=== PATIENT | male | born 1940 | race Caucasian/White ===

== ENCOUNTER 2020-11-25 16:43 | Observation (INO) ==
[2020-11-25] MEDS ORDERED: MORPHINE SULFATE 2 MG/ML DISP.SYRIN IV ONE (17:03)
[2020-11-25] MEDS ORDERED: MORPHINE SULFATE 2 MG/ML DISP.SYRIN ONE (17:04)
--- NOTE | 2020-11-25 17:10 | ERNOTE ---
Trauma/Assault HPI - Narrative Date of Service: 11/25/20 - General Stated Complaint: Fall; Rib/Side Pain Time Seen by Provider: 11/25/20 16:47 Source: patient Exam Limitations: no limitations - Immun/Allergies/Home Medications Immunizations: IMMUNIZATION HX Immunizations Up to Date Yes History of Influenza Vaccine Yes Hx Pneumococcal Vaccination Yes Allergies/Adverse Reactions: Allergies No Known Allergies Allergy (Unverified 11/25/20 17:00) Home Medications: HOME MEDICATIONS Aspirin [Aspirin Chewable] 81 mg PO DAILY 11/25/20 [Last Taken Unknown] Cetirizine HCl [Zyrtec] 10 mg PO DAILY 11/25/20 [Last Taken Unknown] Gabapentin 300 mg PO TID 11/25/20 [Last Taken Unknown] HYDROcodone/ACETAMINOPHEN [[place] 5-325] 1 tab PO QID PRN 11/25/20 [Last Taken Unknown] Meloxicam [Mobic] 15 mg PO DAILY 11/25/20 [Last Taken Unknown] Pantoprazole Sodium 40 mg PO DAILY 11/25/20 [Last Taken Unknown] Tamsulosin HCl [Flomax] 0.4 mg PO BID 11/25/20 [Last Taken Unknown] - History of Present Illness Narrative: 80-year-old male presents status post mechanical fall that happened approximately 3 hours prior to arrival. Patient was brought by private vehicle. Patient notes his pain is currently 10/10 he notes the pain appears to be worse with movement, lifting of his left arm, any significant stretching or reaching activities. He does note he has mild improvements at rest however he continues to have significant baseline pain. Patient denies any significant shortness of breath at this time, denies any loss of consciousness no significant head trauma. He denies any episodes of emesis. Patient notes he is not taking a blood thinner outside of an 81 mg aspirin daily. Patient notes he had significant difficulty getting comfortable, he denies any significant radiating symptoms. He denies any other significant modifying factors. He did not take any medications prior to arrival. Review of Systems - Review of Systems Constitutional: Absent: fever, weakness EYE: Absent: blurred vision, double vision ENT: Absent: nose congestion, sore throat Respiratory: Absent: shortness of breath, cough Cardiology: Present: See HPI. Absent: chest pain, syncope Gastrointestinal/Abdominal: Absent: nausea, vomiting, diarrhea, constipation, abdominal pain Genitourinary: Present: no symptoms reported Musculoskeletal: Present: back pain. Absent: joint pain Skin: Absent: rash, lesions Neurological: Absent: headache, dizziness/light-headedness, weakness, numbness, tingling Endocrine: Present: no symptoms reported Hematologic/Lymphatic: Present: no symptoms reported Psych: Present: no symptoms reported Medical History (Last Reviewed 11/25/20 @ 19:27 by ERIC Trujillo) Hx of sleep apnea Surgical History: Surgical History (Last Reviewed 11/25/20 @ 19:27 by ERIC Trujillo) Hx of appendectomy Hx of bariatric surgery Hx of shoulder replacement Family History: Family History (Last Reviewed 11/25/20 @ 19:27 by ERIC Trujillo) Other No pertinent family history in first degree relatives Social History: (Last Reviewed 11/25/20 @ 19:27 by ERIC Trujillo) Tobacco: Smoking Status: Former smoker Alcohol: alcohol intake: former Substance Use: substance use type: does not use Physical Exam - Physical Exam General Appearance: Present: wd/wn, alert, moderate distress Head Exam: Present: normal inspection, no evidence of injury. Absent: Lugo's Sign, raccoon eyes Eye Exam: Normal inspection: bilateral, PERRL: bilateral, EOMI: bilateral Ears, Nose, Throat: Present: normal ENT inspection, normal pharynx Neck: Present: normal inspection, nontender Respiratory: Present: no respiratory distress, normal breath sounds, no accessory muscle use, chest tenderness - left sided mid-throacic Cardiovascular/Chest: Present: regular rate, rhythm, no murmur Gastrointestinal/Abdominal: Present: normal bowel sounds, nontender, nondistended, soft Back Exam: Present: vertebral tenderness - thoracic region, decreased range of motion Extremity Exam: Present: normal inspection, non-tender, no edema Neurological Exam: Present: alert, oriented, normal mood/affect, no motor/sensory deficits Skin Exam: Present: normal color, warm/dry Detailed Trauma Exam Best Eye Response (Manju): (4) open spontaneously Best Verbal Response (Ethan): (5) oriented Best Motor Response (Ethan): (6) obeys commands Ethan Total: 15 - C-Spine cleared by: Neg history & exam Progress - Date and Time Seen: Date and Time: 11/25/20 17:08 80-year-old male presents today status post what appears to be a mechanical fall . Patient denies any significant cardiac history however he does have significant left-sided chest pain. Patient's vitals are stable at this time. Discussed ruling out any acute cardiac conditions as well as concern for significant bony traumas. Discussed with patient obtaining baseline lab as well as imaging for these possibilities of pathology. Patient expressed understanding will continue to monitor, did give patient a dose of pain medication IV to help improve his comfortability. We will continue to monitor and adjust treatment plan acutely. 11/25/20 19:[address] was negative for acute intracranial process, chest x-ray cardiomegaly, no other acute process identified. Patient's thoracic CT did reveal multiple adjacent rib fractures along the left side posteriorly. Based on this and patient's continued pain discussed the possibility of discharge versus admittance for observation. Patient is significantly limited in his ability to ambulate at this time due to pain control, note his vitals are stable however discussed risk of developing acute complication. Discussed possible education from respiratory with an incentive spirometer. Discussed risk of further complications and continued pain control. At this time elected to discussed the case with internal medicine physician. Dr. Burton will be the admitting physician for observation, pain control, continued care. Discussed the case in detail with him over the phone. Patient will be Covid swab prior to admittance into the hospital for appropriate placement. We will continue to monitor patient until he is transferred to the medical surgical unit. - Results and Orders Patient's Lab Results:: I have reviewed the patient's lab results. - Vital Signs Patient's Vital Signs:: I have reviewed the patient's vital signs. Vital Signs: Vital Signs 11/25/20 16:51 Temperature 36.6 C Pulse Rate 76 Respiratory Rate 20 Blood Pressure 138/85 O2 Sat by Pulse Oximetry 97 - X-Ray X-Ray #1 X-Ray: chest Interpretation: Reviewed by me X-ray Comments: HISTORY: Fall TECHNIQUE: 2 AP portable views. FINDINGS: Mild cardiomegaly. Central vascular prominence noted with some questionable Michelle B lines. If real this could imply some minor interstitial edema. This could all represent chronic interstitial change. No alveolar consolidations. No pleural effusion or pneumothorax Mild age-related changes seen in the aortic arch. IMPRESSION: Cardiomegaly without florid interstitial edema but questionable borderline fluid overload versus chronic interstitial change. Slight undulation of several left-sided ribs noted but without definite cortical step-off Electronically signed by Suyapa Childress MD. Suyapa Childress MD - CT/Ultrasound CT/Ultrasound Narrative: Noncontrast head CT on 11/25/2020 COMPARISON: None HISTORY: Fall TECHNIQUE: 5 mm axial images. Sagittal and coronal reformats. Individualized dose optimization technique was used for the performed procedure including automated exposure control, adjustment of the mA and/or kV according to patient size and/or the iterative reconstruction technique. FINDINGS: Ventricles mildly prominent a pattern suggesting central atrophy. No midline shift. Mild to moderate periventricular and deep white matter low-attenuation may representing combinations of transependymal resorption of CSF and age-related small vessel change. Other demyelinating processes could have similar appearance. No evidence for bleed, mass effect nor discrete mass lesions. The sella turcica and suprasellar cistern are unremarkable. No worrisome focal abnormality within midbrain, tiffanie, medulla or cerebellum. Cerebellar tonsils are low lying. Sulcal prominence consistent with cortical atrophy, mild to moderate in severity over the convexities and by the sylvian fissures. No discrete extra-axial fluid or soft tissue masses noted. Bone window settings fail to demonstrate acute calvarial abnormality. Paranasal sinuses demonstrate patchy ethmoid opacification and moderate mucoperiosteal thickening in the caudal left maxillary antrum. Mastoid air cells are unremarkable. No discrete orbital abnormality. Moderate calcification the cavernous portion the carotid arteries. IMPRESSION: No acute intracranial abnormality. Mild central and moderate cortical atrophy and suspected age-related deep white matter change. Other incidental findings described above COMPARISON: None HISTORY: Fall TECHNIQUE: 3 mm axial images. Sagittal and coronal reformats. Individualized dose optimization technique was used for the performed procedure including automated exposure control, adjustment of the mA and/or kV according to patient size and/or the iterative reconstruction technique. FINDINGS: Coronal imaging demonstrates mild scoliosis convex left lower thoracic region, rightward mid thoracic region. Midline sagittal images demonstrate slight straightening of dorsal kyphosis. Bones are diffusely osteoporotic. There is some Schmorl's deformities and minor endplate concavities suggestive of osteoporotic deformity. I do not see anterior wedge compression fractures. There are multiple posterior rib fractures on the left involving 3 and possibly 4 contiguous vertebra involving the sixth through potentially the ninth vertebra. There is some minimal pleural thickening and small pleural effusion adjacent to it. Incidental mode is also made of hilar or mediastinal calcifications consistent with previous granulomatous disease exposure and either dense coronary artery calcification and/or stent material in the region of the left main and LAD. IMPRESSION: No definite vertebral body fractures though some moderate degenerative change and osteoporotic deformities noted. 3, possibly 4 adjacent posterior left rib fractures minimally displaced but with some minor adjacent pleural thickening and/or pleural effusion Electronically signed by Suyapa Childress MD. Suyapa Childress MD - Progress/Reassessment Chief Complaint: Fall Plan - Plan Plan: Admitted for observation for further monitoring of complications, pain control Departure Clinical Impression: Multiple fractures of ribs of left side Qualifiers: Encounter type: initial encounter Fracture type: closed Qualified Code(s): S22.42XA - Multiple fractures of ribs, left side, initial encounter for closed fracture - Departure Disposition: Still a patient Condition: Stable Print Language: Prydeinig Additional Instructions: Patient will be admitted for further observation, pain control, monitor for c omplication Referrals: Naseem Nolasco MD [Primary Care Provider] - Critical Care Time - Critical Care Critical Time Spent:: No
[2020-11-25 17:17] LABS: Hematocrit 39.9 % (42.0-52.0); Hemoglobin 12.9 gm/dL (13.5-18.0); Mean Cell Volume 98.8 fl (78-100); Mean Corpuscular Hemoglobin 31.9 pg (27-31); Mean Corpuscular Hgb Conc 32.3 g/dl (32-36); Mean Platelet Volume 9.4 fl (8-11.3); Neutrophil # 9.1 K/mm3 (1.3-6.0); Neutrophil % 81.1 % (42-75.0); Platelet Count 219 K/mm3 (150-450); Red Blood Count 4.04 M/mm3 (4.7-6.0); Red Cell Distribution Width 13.8 % (11.5-14.0); White Blood Count 11.2 K/mm3 (4.0-10.5)
[2020-11-25 17:27] LABS: Prothrombin Time (Patient) 10.7 Seconds (9.1-10.7)
[2020-11-25 17:28] LABS: INR 1.08 INR (0.92-1.08); Partial Thrombolplastin Time 26.4 Seconds (24-32)
[2020-11-25 17:34] LABS: ALT 39 U/L (19-67); AST 32 U/L (0-48); Albumin * 3.5 gm/dl (3.4-5.0); Alkaline Phosphatase * 105 U/L (50-170); Anion Gap 11.1 mmol/L (6.8-13.8); BUN/Creatinine Ratio 12.7 (9.0-21.6); Bilirubin, Total 0.7 mg/dL (0.0-1.1); Blood Urea Nitrogen 15 mg/dL (6-23); Ca. Corrected For Albumin 8.8 mg/dL (8.4-10.2); Calcium * 8.7 mg/dL (7.9-10.9); Carbon Dioxide 26.1 mmol/L (24-32.6); Chloride 105 mmol/L (97-106); Glucose * 148 mg/dL (70-110); Potassium 4.2 mmol/L (3.4-4.6); Sodium 138 mmol/L (132-142); Total Protein 7.8 gm/dL (6.2-8.2); Troponin I Less than 0.017 ng/mL (0.00-0.10)
[2020-11-25] MEDS ORDERED: MORPHINE SULFATE 4 MG/ML SYRG IV ONE (17:56)
[2020-11-25] MEDS ORDERED: HYDROmorphone HCL 1 MG/ML DISP.SYRIN IV ONE ×2 (19:20→21:23)
[2020-11-25] MEDS ORDERED: HYDROcodone/ACETAMINOPHEN 1 EACH TABLET PO PRN (20:00)
--- NOTE | 2020-11-25 20:02 | HP ---
Chief Complaint - Chief Complaint Date of Service: 11/25/20 Time of Service: 20:02 Chief Complaint: rib pain, fall History of Present Illness: 80-year-old male with history of sleep apnea presented to the ER after mechanical fall that resulted in left-sided chest pain. Work-up in the ER showed him to have multiple left-sided rib fractures which is what has been causing him distress. Rest of his work-up was fairly benign. He did have mild ly elevated white count at 11.2 but this is likely a stress reaction due to the pain from the fall more so anything else. Patient denied any symptoms of illness prior to the fall. Patient is able to take deep breaths, chest is stable and no signs of pneumothorax. Patient admitted for observation due to uncontrolled pain. Patient's vital signs been stable otherwise patient has no other concerns besides the pain. Medical History (Last Updated 11/25/20 @ 23:33 by Lidia Mclean RN) Hx of sleep apnea Prostate cancer 2008 Surgical History: Surgical History (Last Reviewed 11/25/20 @ 19:27 by ERIC Trujillo) Hx of appendectomy Hx of bariatric surgery Hx of shoulder replacement Family History: Family History (Last Reviewed 11/25/20 @ 19:27 by ERIC Trujillo) Other No pertinent family history in first degree relatives Social History: (Last Reviewed 11/25/20 @ 19:27 by ERIC Trujillo) Tobacco: Smoking Status: Former smoker Alcohol: alcohol intake: former Substance Use: substance use type: does not use Review Of Systems (GEN) - Review of Systems Generalized/Overall Review: Absent: Weakness, Chills, Fever EENTM: Present: No Symptoms Reported Respiratory: Present: Shortness of Breath - From pain. Absent: Cough Cardiac: Present: No Symptoms Reported Abdominal: Present: No Symptoms Reported Genitourinary: Present: No Symptoms Reported Musculoskeletal: Present: Other - Rib pain Neurological: Present: No Symptoms Reported Skin: Present: No Symptoms Reported Endocrine: Present: No Symptoms Reported Immunizations: IMMUNIZATION HX Immunizations Up to Date Yes History of Influenza Vaccine Yes Hx Pneumococcal Vaccination Yes Allergies/Adverse Reactions: Allergies Allergy/AdvReac Type Severity Reaction Status Date / Time No Known Allergies Allergy Verified 11/25/20 23:13 Home Medications: HOME MEDICATIONS Aspirin [Aspirin Chewable] 81 mg PO DAILY 11/25/20 [Last Taken Unknown] Cetirizine HCl [Zyrtec] 10 mg PO DAILY 11/25/20 [Last Taken Unknown] Gabapentin 300 mg PO TID 11/25/20 [Last Taken Unknown] HYDROcodone/ACETAMINOPHEN [[place] 5-325] 1 tab PO QID PRN 11/25/20 [Last Taken Unknown] Meloxicam [Mobic] 15 mg PO DAILY 11/25/20 [Last Taken Unknown] Pantoprazole Sodium 40 mg PO DAILY 11/25/20 [Last Taken Unknown] Tamsulosin HCl [Flomax] 0.4 mg PO BID 11/25/20 [Last Taken Unknown] Exam - Exam Vital Signs: Vital Signs - Last Taken Temp 36.6 C 11/25/20 16:51 Pulse 74 11/25/20 19:37 Resp 16 11/25/20 19:37 BP 164/82 H 11/25/20 19:37 Pulse Ox 97 11/25/20 19:37 Constitutional: Present: Alert, Oriented x3, Cooperative, Moderate distress, Elderly ENT Exam: Present: hearing grossly normal Eye Exam: bilateral eye: normal inspection, EOMI Neck: Present: non-tender, supple Back Exam: Present: normal inspection, CVA tenderness (L) Respiratory: Present: lungs clear, normal breath sounds. Absent: respiratory distress Cardiovascular/Chest: Present: regular rate, rhythm, no murmur Abdomen: Present: soft, nontender, nondistended Skin Exam: Present: normal color, warm/dry Neurologic: Present: alert, normal mood/affect, oriented x 3 Appearance: Present: appropriate appearance, appropriate insight Eye contact: Present: cooperative, good eye contact Thoughts: Present: normal thought pattern, normal mood /affect Diagnostic Studies: Abnormal Lab Results 11/25/20 11/25/20 Range/Units 17:11 17:11 WBC 11.2 H (4.0-10.5) K/mm3 RBC 4.04 L (4.7-6.0) M/mm3 Hgb 12.9 L (13.5-18.0) gm/dL Hct 39.9 L (42.0-52.0) % MCH 31.9 H (27-31) pg Immature Gran % (Auto) 0.70 H (0.001-0.429) % Immature Gran # (Auto) 0.08 H (0.000-0.0310) K/mm3 Neutrophils % 81.1 H (42-75.0) % Lymphocytes % 10.0 L (20-51) % Neutrophils # 9.1 H (1.3-6.0) K/mm3 Lymphocytes # 1.11 L (1.5-3.5) k/mm3 Random Glucose 148 H (70-110) mg/dL Laboratory Results WBC 11.2 K/mm3 (4.0-10.5) H 11/25/20 17:11 RBC 4.04 M/mm3 (4.7-6.0) L 11/25/20 17:11 Hgb 12.9 gm/dL (13.5-18.0) L 11/25/20 17:11 Hct 39.9 % (42.0-52.0) L 11/25/20 17:11 MCV 98.8 fl (78-100) 11/25/20 17:11 MCH 31.9 pg (27-31) H 11/25/20 17:11 MCHC 32.3 g/dl (32-36) 11/25/20 17:11 RDW 13.8 % (11.5-14.0) 11/25/20 17:11 Plt Count 219 K/mm3 (150-450) 11/25/20 17:11 MPV 9.4 fl (8-11.3) 11/25/20 17:11 Immature Gran % (Auto) 0.70 % (0.001-0.429) H 11/25/20 17:11 Immature Gran # (Auto) 0.08 K/mm3 (0.000-0.0310) H 11/25/20 17:11 Neutrophils % 81.1 % (42-75.0) H 11/25/20 17:11 Lymphocytes % 10.0 % (20-51) L 11/25/20 17:11 Monocytes % 7.9 % (0.0-9) 11/25/20 17:11 Eosinophils % 0.1 % (0.0-3.0) 11/25/20 17:11 Basophils % 0.2 % (0.0-1.0) 11/25/20 17:11 Nucleated RBC % 0.0 k/mm3 (0-1) 11/25/20 17:11 Neutrophils # 9.1 K/mm3 (1.3-6.0) H 11/25/20 17:11 Lymphocytes # 1.11 k/mm3 (1.5-3.5) L 11/25/20 17:11 Monocytes # 0.9 k/mm3 (0.0-1.0) 11/25/20 17:11 Eosinophils # 0.0 k/mm3 (0.0-0.7) 11/25/20 17:11 Absolute Basophils 0.0 k/mm3 (0.0-0.1) 11/25/20 17:11 PT 10.7 Seconds (9.1-10.7) 11/25/20 17:11 INR (Anticoag Therapy) 1.08 INR (0.92-1.08) 11/25/20 17:11 PTT ([place]) 26.4 Seconds (24-32) 11/25/20 17:11 Sodium 138 mmol/L (132-142) 11/25/20 17:11 Plasma Sodium 139 mmol/L (130-142) 11/25/20 17:11 Potassium 4.2 mmol/L (3.4-4.6) 11/25/20 17:11 Chloride 105 mmol/L (97-106) 11/25/20 17:11 Carbon Dioxide 26.1 mmol/L (24-32.6) 11/25/20 17:11 Anion Gap 11.1 mmol/L (6.8-13.8) 11/25/20 17:11 BUN 15 mg/dL (6-23) 11/25/20 17:11 Creatinine 1.18 mg/dL (0.4-1.4) 11/25/20 17:11 Est GFR (Non-Af Amer) 63 mL/min (60-130) 11/25/20 17:11 BUN/Creatinine Ratio 12.7 (9.0-21.6) 11/25/20 17:11 Random Glucose 148 mg/dL (70-110) H 11/25/20 17:11 Calcium 8.7 mg/dL (7.9-10.9) 11/25/20 17:11 Calcium Adj for Albumin 8.8 mg/dL (8.4-10.2) 11/25/20 17:11 Total Bilirubin 0.7 mg/dL (0.0-1.1) 11/25/20 17:11 AST 32 U/L (0-48) 11/25/20 17:11 ALT 39 U/L (19-67) 11/25/20 17:11 Alkaline Phosphatase 105 U/L (50-170) 11/25/20 17:11 Troponin I Less than 0.017 ng/mL (0.00-0.10) 11/25/20 17:11 Total Protein 7.8 gm/dL (6.2-8.2) 11/25/20 17:11 Albumin 3.5 gm/dl (3.4-5.0) 11/25/20 17:11 Assessment/Plan - Narrative Narrative: 80-year-old male admitted for pain control due to multiple rib fractures on left side following mechanical fall. Patient did not lose consciousness did not hit his head, states he just tripped over the tongue of his trailer. Patient pain fairly well controlled in the ER with IV pain medicine, will transition him over to oral pain medicine as he will not build to stay more than 1 night and he would not build to have this medicine at home. He takes hydrocodone sparingly which she has in his med list. Will resume this and adjust this dosage if needed if unable to obtain adequate pain control with 5 mg every 6 hours. Patient was sleep apnea, CPAP ordered. We will have PT evaluate the patient in the morning. Otherwise patient's vital signs are stable, resume his home medications. Patient to have SCDs worn for DVT prophylaxis. Regular diet ordered. Nurse to call questions or concerns. Patient evaluated in the ER. - Assessment/Plan (1) Sleep apnea Problem: Acute (2) Multiple fractures of ribs of left side Problem: Acute Qualifiers: Encounter type: initial encounter Fracture type: closed Qualified Code(s): S22.42XA - Multiple fractures of ribs, left side, initial encounter for closed fracture
[2020-11-25] MEDS: TAMSULOSIN HCL 0.4 MG CAP.SR.24H PO SCH (22:52)
[2020-11-25] MEDS: GABAPENTIN 300 MG CAPSULE PO SCH (22:53)
[2020-11-26] MEDS: HYDROcodone/ACETAMINOPHEN 1 EACH TABLET PO PRN ×3 (03:32→11:54)
[2020-11-26] MEDS ORDERED: ASPIRIN 81 MG TAB.CHEW PO SCH (09:00)
[2020-11-26] MEDS ORDERED: LORATADINE 10 MG TABLET PO SCH (09:00)
[2020-11-26] MEDS ORDERED: MELOXICAM 15 MG TABLET PO SCH (09:00)
[2020-11-26] MEDS ORDERED: PANTOPRAZOLE SODIUM 40 MG TABLET.EC PO SCH (09:00)
[2020-11-26] MEDS: GABAPENTIN 300 MG CAPSULE PO SCH ×2 (09:40→13:35)
[2020-11-26] MEDS: TAMSULOSIN HCL 0.4 MG CAP.SR.24H PO SCH (09:44)
[2020-11-26] MEDS ORDERED: DOCUSATE SODIUM 100 MG CAPSULE PO SCH (10:15)
--- NOTE | 2020-11-26 12:32 | DS ---
(1) Multiple fractures of ribs of left side Problem: Acute Qualifiers: Encounter type: initial encounter Fracture type: closed Qualified Code(s): S22.42XA - Multiple fractures of ribs, left side, initial encounter for closed fracture (2) Sleep apnea Problem: Chronic Date of Discharge:: 11/26/20 Hospital Course: Patient brought into the hospital due to intractable pain from forward fractures on his left side. Patient did well overnight with oral pain medicine. Patient stable at this time, vital signs are stable. No indications of respiratory distress or shortness of breath. Patient able to breathe adequately even if slightly shallow due to the pain. Patient to be discharged home today with hydrocodone they can take the next 1 to 2 weeks, explained that his pain will start to improve each day and that he will need less and less of this medicine at that time. Patient will follow with his PCP if he has any concerns regarding this. Patient is welcome to follow-up with me if needed. No changes to his chronic medications aside from refilling his hydrocodone. Patient was in agreement the treatment plan, will follow-up as directed. No repeat blood work needed. Procedures Performed: none Results and Findings: Lab Pending Results 11/25/20 17:11: WBC 11.2 H, RBC 4.04 L, Hgb 12.9 L, Hct 39.9 L, MCV 98.8, MCH 31.9 H, MCHC 32.3, RDW 13.8, Plt Count 219, MPV 9.4, Immature Gran % (Auto) 0.70 H, Immature Gran # (Auto) 0.08 H, Neutrophils % 81.1 H, Lymphocytes % 10.0 L, Mo nocytes % 7.9, Eosinophils % 0.1, Basophils % 0.2, Nucleated RBC % 0.0, Neutrophils # 9.1 H, Lymphocytes # 1.11 L, Monocytes # 0.9, Eosinophils # 0.0, Absolute Basophils 0.0 11/25/20 17:11: PT 10.7, INR (Anticoag Therapy) 1.08, PTT ([place]ia) 26.4 11/25/20 17:11: Sodium 138, Plasma Sodium 139, Potassium 4.2, Chloride 105, Carbon Dioxide 26.1, Anion Gap 11.1, BUN 15, Creatinine 1.18, Est GFR (Non-Af Amer) 63, BUN/Creatinine Ratio 12.7, Random Glucose 148 H, Calcium 8.7, Calcium Adj for Albumin 8.8, Total Bilirubin 0.7, AST 32, ALT 39, Alkaline Phosphatase 105, Troponin I Less than 0.017, Total Protein 7.8, Albumin 3.5 11/25/20 19:15: SARS-CoV-2 (PCR) Not detected Discharge Location: Home Disposition: Home self-care Condition: Stable Discharge Activity: Activity as tolerated Discharge Diet: General/regular food Referrals: Naseem Nolasco MD [Primary Care Provider] - One Week Additional Patient Instructions (free text): Follow up appointment with Dr. Naseem Leavitt on November at 1:15 pm. Prescriptions (Any new or edited meds): Docusate Sodium [Colace] 100 mg PO BID #60 cap Transmission Status: Pending to [id number] HYDROcodone/ACETAMINOPHEN [[place] 5-325] 1 tab PO QID PRN #60 PRN Reason: Pain Complete Home Medications List: Complete Home Medication List: Aspirin [Aspirin Chewable] 81 mg PO DAILY 11/25/20 Cetirizine HCl [Zyrtec] 10 mg PO DAILY 11/25/20 Gabapentin 300 mg PO TID 11/25/20 Meloxicam [Mobic] 15 mg PO DAILY 11/25/20 Pantoprazole Sodium 40 mg PO DAILY 11/25/20 Tamsulosin HCl [Flomax] 0.4 mg PO BID 11/25/20 Docusate Sodium [Colace] 100 mg PO BID #60 cap 11/26/20 HYDROcodone/ACETAMINOPHEN [[place] 5-325] 1 tab PO QID PRN #60 11/26/20
[2020-11-26 13:55] VITALS: BP 168/81
[2020-11-26] MEDS ORDERED: SENNOSIDES/DOCUSATE SODIUM 1 TAB TABLET PO SCH (21:00)
== END 2020-11-26 14:35 | disposition home or self-care (01) ==
LOC: MS 16:43 → ER 16:43 → MS 21:34
PROVIDERS: ADMIT Family Medicine; ATTEND Family Medicine
DX: S22.42XA Multiple fractures of ribs, left side, initial encounter for closed fracture; Z87.891 Personal history of nicotine dependence; W18.09XA Striking against other object with subsequent fall, initial encounter; R07.81 Pleurodynia; G47.30 Sleep apnea, unspecified